=== PATIENT | female | born 1955 | race American Indian/Alaskan Native ===

== ENCOUNTER 2017-03-04 19:19 | Inpatient (IN) | payer OTHER ==
[2017-03-04 20:48] LABS: Basophils % (Auto) 0.4 % (0.0-1.8); Eosinophils % (Auto) 0.5 % (0.0-4.3); Hematocrit 37.6 % (30.3-42.9); Mean Corpuscular HGB Conc 32 % (30-34); Mean Corpuscular Hemoglobin 28 pg (28-32); Mean Corpuscular Volume 87 fl (79-97); Platelet Count 166 K/mm3 (140-440); Red Blood Count 4.35 M/mm3 (3.65-5.03); Red Cell Distribution Width 13.2 % (13.2-15.2); White Blood Count 6.6 K/mm3 (4.5-11.0)
[2017-03-04 21:04] LABS: BUN/Creatinine Ratio 26.25; Calcium 8.4 mg/dL (8.4-10.2); Chloride 98.3 mmol/L (98-107); Potassium 4.5 mmol/L (3.6-5.0)
[2017-03-04] MEDS ORDERED: NACL 0.9% 1000 ML 1,000 ML IV ONE (21:15)
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
[2017-03-04 21:20] LABS: Bacteria,Urine 1+ /HPF (Negative); Bilirubin,Urine NEG (Negative); Blood,Urine NEG (Negative); Ketones,Urine NEG (Negative); Leukocyte Esterase,Urine LG (Negative); Nitrite,Urine NEG (Negative); Urobilinogen,Urine < 2.0 mg/dL (<2.0)
--- NOTE | 2017-03-04 23:19 | Cat Scan Report ---
FINAL REPORT EXAM: CT HEAD/BRAIN WO CON HISTORY: near syncope TECHNIQUE: CT imaging is acquired through the brain without contrast. Transaxial reformations are provided. PRIORS: None. FINDINGS: Ventricles and CSF spaces are within normal limits for patient age. Scattered deep and subcortical white matter hypodense foci are confluent in some areas and are compatible with microvascular angiopathy. No acute intracranial hemorrhage or mass effect. Calvarium and superficial scalp are intact. Partially visualized paranasal sinuses are clear. Mastoids are clear. IMPRESSION: No acute intracranial abnormality. 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
[2017-03-04 23:26] LABS: INR 0.97 (0.87-1.13)
[2017-03-05] MEDS ORDERED: BABY ASPIRIN PO ONE (00:22)
[2017-03-05] MEDS ORDERED: ZOFRAN IV PRN (01:03)
[2017-03-05] MEDS ORDERED: MILK OF MAGNESIA PO PRN (01:03)
[2017-03-05] MEDS ORDERED: TYLENOL PO PRN (01:03)
[2017-03-05] MEDS ORDERED: DULCOLAX PR PRN (01:03)
[2017-03-05] MEDS ORDERED: D50W (25GM) IV PRN (01:06)
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
[2017-03-05 02:52] LABS: Creatine Kinase MB 2.6 ng/mL (0.0-4.0)
[2017-03-05 02:53] LABS: Creatine Kinase 47 units/L (30-135)
[2017-03-05] MEDS: LEVAQUIN PO SCH (04:03)
[2017-03-05] MEDS: NACL 0.45% 1000 ML 1,000 ML IV SCH ×3 (04:04→23:38)
[2017-03-05 06:41] LABS: Creatine Kinase MB 2.6 ng/mL (0.0-4.0)
[2017-03-05 06:43] LABS: Creatine Kinase 48 units/L (30-135)
[2017-03-05] MEDS: NOVOLOG SUB-Q SCH ×4 (07:43→23:37)
[2017-03-05] MEDS ORDERED: LOVENOX SUB-Q SCH (10:00)
[2017-03-05] MEDS: LOVENOX SUB-Q SCH (10:41)
--- NOTE | 2017-03-05 12:35 | Admit Criteria Form ---
Admission Criteria Documentation: SYNCOPE Clinical Indications for Admission to Inpatient Care ( Place 'X' for any and all applicable criteria): Admission is indicated for syncope and ANY ONE of the following (1)(2)(3)(4)(5) (6)(7) : [ X]I. Inpatient admission required rather than observation care (Also use Syncope: Observation Care Criteria as appropriate) because of ANY ONE of the following: [ ]a) Hemodynamic instability that is severe or persistent [ ]b) Cardiac arrhythmias of immediate concern identified or strongly suspected (eg, needs electrophysiologic study) [ ]c) Acute coronary syndrome identified (Also use Myocardial Infarction or Angina Criteria form ) [ ]d) Structural cardiac disorder (eg, aortic stenosis) suspected as cause that requires immediate correction [ ]e) Respiratory symptoms (eg, dyspnea, tachypnea) that are severe or persistent [ ]f) Neurologic signs or symptoms that are severe or persistent ( eg, stroke, seizures, altered mental status) [ ]g) Severe electrolyte abnormalities requiring inpatient care [ ]h) Supplemental oxygen or respiratory treatment for over 24 hrs that are performable only in acute inpatient setting [ ]i) IV fluid to replace significant ongoing (eg, for over 24 hrs ) losses (>3 L/m2 per day) [ ]j) Continuous intravenous infusion of anticoagulation, platelet inhibitor, vasoactive, or antiarrhythmic medication(15)(16) [ ]k) Pulmonary artery catheter monitoring [ ]l) Temporary pacemaker placement(17) [ ]m) Emergent cardioversion(18) [ X]n) Other conditions, treatment or monitoring requiring inpatient admission [ ]II. Suspicion of imminently dangerous cause (eg, rare causes like pericardial tamponade, pulmonary embolism) [ ]III. Syncope causing severe injury requiring hospitalization Extended stay beyond goal length of stay may be needed for(28) [ ]a) Dangerous arrhythmia(15)(23)(27)(29) [ ]b) Myocardial ischemia [ ]c) Seizure disorder [ ]d) Syncope-related injuries The original [employer] content created by [employer] has been revised. The portions of the content which have been revised are identified through the use of italic text or in bold, and [employer] has neither reviewed nor approved the modified material. All other unmodified content is copyright [employer] [employer] Please see references footnoted in the original [facility] edition 2016 Admission Criteria Met: Yes
--- NOTE | 2017-03-05 17:31 | Event Note ---
Date: 03/05/17 Patient was admitted this morning with syncopal episode Workup is in progress, patient feels better no new episodes of dizziness syncope or near syncope Continue current medications, fall precautions, possible discharge in 1-2 days if workup is negative
--- NOTE | 2017-03-05 18:45 | Progress Note ---
Hospitalist Physical - Constitutional Vitals: Temp Pulse Resp BP Pulse Ox 97.8 F 101 H 18 158/67 100 03/05/17 17:22 03/05/17 17:22 03/05/17 17:22 03/05/17 17:22 03/05/17 17:22 Results - Labs CBC & Chem 7: 03/04/17 20:28 03/04/17 20:28 Labs: Laboratory Last Values WBC 6.6 K/mm3 (4.5-11.0) 03/04/17 20:28 RBC 4.35 M/mm3 (3.65-5.03) 03/04/17 20:28 Hgb 12.0 gm/dl (10.1-14.3) 03/04/17 20:28 Hct 37.6 % (30.3-42.9) 03/04/17 20:28 MCV 87 fl (79-97) 03/04/17 20:28 MCH 28 pg (28-32) 03/04/17 20:28 MCHC 32 % (30-34) 03/04/17 20:28 RDW 13.2 % (13.2-15.2) 03/04/17 20:28 Plt Count 166 K/mm3 (140-440) 03/04/17 20:28 Lymph % (Auto) 20.8 % (13.4-35.0) 03/04/17 20:28 Sac % (Auto) 6.1 % (0.0-7.3) 03/04/17 20:28 Eos % (Auto) 0.5 % (0.0-4.3) 03/04/17 20:28 Baso % (Auto) 0.4 % (0.0-1.8) 03/04/17 20:28 Lymph # 1.4 K/mm3 (1.2-5.4) 03/04/17 20:28 Sac # 0.4 K/mm3 (0.0-0.8) 03/04/17 20:28 Eos # 0.0 K/mm3 (0.0-0.4) 03/04/17 20:28 Baso # 0.0 K/mm3 (0.0-0.1) 03/04/17 20:28 Seg Neutrophils % 72.2 % (40.0-70.0) H 03/04/17 20:28 Seg Neutrophils # 4.7 K/mm3 (1.8-7.7) 03/04/17 20:28 PT 13.4 Sec. (12.2-14.9) 03/04/17 22:39 INR 0.97 (0.87-1.13) 03/04/17 22:39 D-Dimer < 135.00 ng/mlDDU (0-234) 03/05/17 00:00 VBG pH 7.377 (7.320-7.420) 03/04/17 20:28 Sodium 135 mmol/L (137-145) L 03/04/17 20:28 Potassium 4.5 mmol/L (3.6-5.0) 03/04/17 20:28 Chloride 98.3 mmol/L (98-107) 03/04/17 20:28 Carbon Dioxide 25 mmol/L (22-30) 03/04/17 20:28 Anion Gap 16 mmol/L 03/04/17 20:28 BUN 42 mg/dL (7-17) H 03/04/17 20:28 Creatinine 1.6 mg/dL (0.7-1.2) H 03/04/17 20:28 Estimated GFR 39 ml/min 03/04/17 20:28 BUN/Creatinine Ratio 26.25 % 03/04/17 20:28 Glucose 435 mg/dL (65-100) H 03/04/17 20:28 POC Glucose 477 (70-105) H 03/05/17 15:42 Calcium 8.4 mg/dL (8.4-10.2) 03/04/17 20:28 Magnesium 1.90 mg/dL (1.7-2.3) 03/04/17 20:28 Total Creatine Kinase 48 units/L (30-135) 03/05/17 05:26 CK-MB (CK-2) 2.6 ng/mL (0.0-4.0) 03/05/17 05:26 CK-MB (CK-2) Rel Index 5.4 (0-4) H 03/05/17 05:26 Troponin T < 0.010 ng/mL (0.00-0.029) 03/05/17 05:26 Urine Color Yellow (Yellow) 03/04/17 Unknown Urine Turbidity Clear (Clear) 03/04/17 Unknown Urine pH 5.0 (5.0-7.0) 03/04/17 Unknown Ur Specific [place] 1.021 (1.003-1.030) 03/04/17 Unknown Urine Protein 30 mg/dl mg/dL (Negative) 03/04/17 Unknown Urine Glucose (UA) >=500 mg/dL (Negative) 03/04/17 Unknown Urine Ketones Neg mg/dL (Negative) 03/04/17 Unknown Urine Blood Neg (Negative) 03/04/17 Unknown Urine Nitrite Neg (Negative) 03/04/17 Unknown Urine Bilirubin Neg (Negative) 03/04/17 Unknown Urine Urobilinogen < 2.0 mg/dL (<2.0) 03/04/17 Unknown Ur Leukocyte Esterase Lg (Negative) 03/04/17 Unknown Urine WBC (Auto) 11.0 /HPF (0.0-6.0) H 03/04/17 Unknown Urine RBC (Auto) 11.0 /HPF (0.0-6.0) 03/04/17 Unknown U Epithel Cells (Auto) 7.0 /HPF (0-13.0) 03/04/17 Unknown Urine Bacteria (Auto) 1+ /HPF (Negative) 03/04/17 Unknown
[2017-03-06 08:21] LABS: Basophils % (Auto) 0.7 % (0.0-1.8); Eosinophils % (Auto) 1.7 % (0.0-4.3); Hematocrit 35.4 % (30.3-42.9); Hemoglobin 11.5 gm/dl (10.1-14.3); Mean Corpuscular HGB Conc 32 % (30-34); Mean Corpuscular Hemoglobin 28 pg (28-32); Mean Corpuscular Volume 86 fl (79-97); Platelet Count 160 K/mm3 (140-440); Red Blood Count 4.12 M/mm3 (3.65-5.03); Red Cell Distribution Width 13.3 % (13.2-15.2); White Blood Count 6.3 K/mm3 (4.5-11.0)
[2017-03-06 08:23] LABS: BUN/Creatinine Ratio 17.5; Calcium 8.5 mg/dL (8.4-10.2); Chloride 103.6 mmol/L (98-107); Potassium 3.8 mmol/L (3.6-5.0)
[2017-03-06] MEDS: NOVOLOG SUB-Q SCH ×2 (08:37→13:37)
[2017-03-06] MEDS: LOVENOX SUB-Q SCH (09:04)
[2017-03-06] MEDS: LEVAQUIN PO SCH (09:04)
[2017-03-06 13:11] VITALS: BP 166/76
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
--- NOTE | 2017-03-10 10:22 | Vascular Lab Report ---
CAROTID DUPLEX STUDY: RIGHT PSVEDV CCA [id number] CCA [id number] ICA [id number] ICA MID:[id number] ICA DIST:[id number] ECA: 150 VERT: 67 12 LEFT PSVEDV CCA [id number] CCA DIST:[id number] ICA PROX:[id number] ICA MID:[id number] ICA DIST:[id number] ECA: 145 VERT: 77 14 REASON FOR EXAM: Carotid artery stenosis/syncope. COMMENTS ON THE RIGHT: Doppler frequency analysis is consistent with 16 to 49 percent diameter reduction of the internal carotid artery. Minimal amount of plaque is seen. The common carotid artery is patent. The external carotid artery is patent. The vertebral artery has antegrade flow. COMMENTS ON THE LEFT: Doppler frequency analysis is consistent with 16 to 49 percent diameter reduction of the internal carotid artery. Minimal amount of plaque is seen. The common carotid artery is patent. The external carotid artery is patent. The vertebral artery has antegrade flow. IMPRESSION: Less than 50% diameter reduction in the internal carotid arteries bilaterally. Consider repeat carotid artery duplex in 12 months.
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
== END 2017-03-06 15:54 | disposition home or self-care (01) | DRG 682 ==
LOC: ED 19:19 → 4A 03-05 01:03
PROVIDERS: ADMIT Internal Medicine; ATTEND Internal Medicine
DX: N17.9 Acute kidney failure, unspecified (principal); E11.00 Type 2 diabetes mellitus with hyperosmolarity without nonketotic hyperglycemic-hyperosmolar coma (NKHHC); N39.0 Urinary tract infection, site not specified; E11.65 Type 2 diabetes mellitus with hyperglycemia; N18.9 Chronic kidney disease, unspecified; I12.9 Hypertensive chronic kidney disease with stage 1 through stage 4 chronic kidney disease, or unspecified chronic kidney disease; E11.22 Type 2 diabetes mellitus with diabetic chronic kidney disease; Z90.49 Acquired absence of other specified parts of digestive tract; Z82.49 Family history of ischemic heart disease and other diseases of the circulatory system
CPT/HCPCS: 36415; 70450; 80048; 81001; 82550; 82553; 82805; 82962; 83036; 83735; 84484; 85025; 85379; 85610; 87086; 93005; 93010; 93306; 93880; 96361; 96374; 99285; J1650; J1815; J7030

== ENCOUNTER 2020-12-17 14:22 | Emergency (ER) | payer MEDICARE, OTHER ==
--- NOTE | 2020-12-17 14:49 | Event Note ---
ED Screening Note ED Screening Note: BG OVER 500 FREQUENCY/HUNGRY WEAKNESS DIABETIC This initial assessment/diagnostic orders/clinical plan/treatment(s) is/are subject to change based on patients health status, clinical progression and re- assessment by fellow clinical providers in the ED. Further treatment and workup at subsequent clinical providers discretion. Patient/guardian urged not to elope from the ED as their condition may be serious if not clinically assessed and managed. Initial orders include: HYPERGLYCEMIA- RO DKA
[2020-12-17 15:15] LABS: Basophils % (Auto) 0.5 % (0.0-1.8); Eosinophils % (Auto) 0.2 % (0.0-4.3); Hematocrit 38.7 % (30.3-42.9); Hemoglobin 12.7 gm/dl (10.1-14.3); Lymphocytes # (Auto) 0.8 K/mm3 (1.2-5.4); Lymphocytes % (Auto) 10.1 % (13.4-35.0); Mean Corpuscular HGB Conc 33 % (30-34); Mean Corpuscular Volume 90 fl (79-97); Monocytes # (Auto) 0.3 K/mm3 (0.0-0.8); Monocytes % (Auto) 3.3 % (0.0-7.3); Platelet Count 226 K/mm3 (140-440); Red Blood Count 4.31 M/mm3 (3.65-5.03); Red Cell Distribution Width 13.5 % (13.2-15.2)
[2020-12-17 15:36] LABS: Alanine Aminotransferase 9 units/L (7-56); Albumin 4.5 g/dL (3.9-5); Blood Urea Nitrogen 52 mg/dL (7-17); Calcium 8.4 mg/dL (8.4-10.2); Hemolysis Index 2
[2020-12-17 15:39] LABS: BUN/Creatinine Ratio 11
--- NOTE | 2020-12-17 15:48 | XRay Report ---
CHEST 2 VIEWS INDICATION / CLINICAL INFORMATION: WEAKNESS. COMPARISON: Report from chest radiograph dated 07/25/2018. Images are not available for direct compar twila. FINDINGS: SUPPORT DEVICES: None. HEART / MEDIASTINUM: No significant abnormality. LUNGS / PLEURA: No significant pulmonary or pleural abnormality. No pneumothorax. There is a small ca lcified granuloma in the left midlung zone. ADDITIONAL FINDINGS: No significant additional findings. IMPRESSION: 1. No acute findings. Signer Name: Prashant Bailey MD Signed: 12/17/2020 3:44 PM Workstation Name: [id number]
[2020-12-17 20:40] LABS: Bilirubin,Urine NEG (Negative); Blood,Urine SM (Negative); Color,Urine Straw (Yellow); Urobilinogen,Urine < 2.0 mg/dL (<2.0)
[2020-12-17] MEDS ORDERED: INSULIN REGULAR, HUMAN 100 UNITS/1 ML IV ONE ×2 (20:47→22:52)
[2020-12-17] MEDS ORDERED: SODIUM CHLORIDE 0.9% 1000 ML 1,000 ML IV ONE (20:47)
--- NOTE | 2020-12-17 21:03 | Emergency Department Report ---
ED General Adult HPI - General Chief complaint: Hyperglycemia Stated complaint: ELEVATED BLOOD GLUCOSE Time Seen by Provider: 12/17/20 14:29 Source: patient Mode of arrival: Ambulatory Limitations: No Limitations - History of Present Illness Initial comments: Patient is 65 years old female with history of hypertension diabetes. Patient presented to the ER blood sugar. Patient stated that she was taking Lantus. She was stopped because they told her that her kidney is not working well. Patient also admitted that she has been drinking a lot of juices and eating past. Patient denied any chest pain, shortness of breath, abdominal pain, nausea or vomiting. No weakness numbness or tingling sensation. - Related Data Home Medications Medication Instructions Recorded Confirmed Last Taken Pravastatin Sodium [Pravastatin] 20 mg PO DAILY 03/05/17 08/06/18 07/24/18 Benzonatate 200 mg PO Q8H PRN 07/25/18 08/06/18 Unknown Insulin Glargine,Hum.rec.anlog 13 units SUB-Q QPM 07/25/18 08/06/18 07/23/18 [Lantus Solostar] Previous Rx's Medication Instructions Recorded Last Taken Type Cefuroxime Axetil [Ceftin] 500 mg PO Q12H #14 ml 07/30/18 Unknown Rx Metoprolol [Lopressor TAB] 50 mg PO BID #60 tablet 07/30/18 Unknown Rx amLODIPine 10 mg PO QDAY tablet 07/30/18 Unknown Rx Ondansetron (Nf) [Zofran TAB] 4 mg PO Q8HR PRN #30 tablet 08/08/18 Unknown Rx oxyCODONE /ACETAMINOPHEN [Percocet 1 tab PO Q4H PRN #25 tablet 08/08/18 Unknown Rx 5/325 mg] Insulin Glargine [Lantus VIAL] 13 units SUB-Q QHS #5 vial 12/17/20 Unknown Rx Allergies Allergy/AdvReac Type Severity Reaction Status Date / Time No Known Allergies Allergy Verified 12/17/20 14:47 ED Review of Systems ROS: Stated complaint: ELEVATED BLOOD GLUCOSE Other details as noted in HPI Comment: All other systems reviewed and negative Constitutional: denies: chills, fever Respiratory: denies: cough, shortness of breath, SOB with exertion Cardiovascular: denies: chest pain, palpitations Gastrointestinal: denies: abdominal pain, nausea, vomiting, diarrhea, constipation, hematemesis, melena, hematochezia Genitourinary: denies: urgency Musculoskeletal: denies: back pain Neurological: denies: headache, weakness, numbness, paresthesias, confusion, abnormal gait ED Past Medical Hx - Past Medical History Hx Hypertension: Yes (no antihypertensives today 2/2 nausea/vomiting) Hx Heart Attack/AMI: No Hx Congestive Heart Failure: No Hx Diabetes: Yes Hx Deep Vein Thrombosis: No Hx Pulmonary Embolism: No Hx GERD: Yes Hx Liver Disease: No 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) Hx Sickle Cell Disease: No Hx Seizures: No Hx Asthma: No Hx COPD: No Hx Tuberculosis: No Hx HIV: No - Surgical History Hx Coronary Stent: No Hx Open Heart Surgery: No Hx Pacemaker: No Hx Internal Defibrillator: No Hx Cholecystectomy: Yes Hx Appendectomy: No Hx Breast Surgery: No Additional Surgical History: fibroid tumors removed - Social History Smoking Status: Never Smoker Substance Use Type: None - Medications Home Medications: Home Medications Medication Instructions Recorded Confirmed Last Taken Type Pravastatin Sodium [Pravastatin] 20 mg PO DAILY 03/05/17 08/06/18 07/24/18 Histo ry Benzonatate 200 mg PO Q8H PRN 07/25/18 08/06/18 Unknown History Insulin Glargine,Hum.rec.anlog 13 units SUB-Q QPM 07/25/18 08/06/18 07/23/18 History [Lantus Solostar] Cefuroxime Axetil [Ceftin] 500 mg PO Q12H #14 ml 07/30/18 08/06/18 Unknown Rx Metoprolol [Lopressor TAB] 50 mg PO BID #60 tablet 07/30/18 08/06/18 Unknown Rx amLODIPine 10 mg PO QDAY tablet 07/30/18 08/06/18 Unknown Rx Ondansetron (Nf) [Zofran TAB] 4 mg PO Q8HR PRN #30 tablet 08/08/18 Unknown Rx oxyCODONE /ACETAMINOPHEN [Percocet 1 tab PO Q4H PRN #25 tablet 08/08/18 Unknown Rx 5/325 mg] Insulin Glargine [Lantus VIAL] 13 units SUB-Q QHS #5 vial 12/17/20 Unknown Rx ED Physical Exam - General Limitations: No Limitations General appearance: alert, in no apparent distress - Head Head exam: Present: atraumatic, normocephalic, normal inspection - Eye Eye exam: Present: normal appearance, PERRL - ENT ENT exam: Present: normal exam, normal orophraynx, mucous membranes moist - Neck Neck exam: Present: normal inspection, full ROM. Absent: tenderness, meningismus - Respiratory Respiratory exam: Present: normal lung sounds bilaterally - Cardiovascular Cardiovascular Exam: Present: regular rate, normal rhythm, normal heart sounds - GI/Abdominal GI/Abdominal exam: Present: soft, normal bowel sounds. Absent: distended, tenderness, guarding, rebound, rigid, organomegaly, mass, bruit, pulsatile mass, hernia - Extremities Exam Extremities exam: Present: normal inspection, full ROM, normal capillary refill. Absent: tenderness, pedal edema, joint swelling, calf tenderness - Back Exam Back exam: Present: normal inspection, full ROM. Absent: CVA tenderness (R), CVA tenderness (L) - Neurological Exam Neurological exam: Present: alert, oriented X3, CN II-XII intact - Psychiatric Psychiatric exam: Present: normal mood - Skin Skin exam: Present: warm, intact, normal color ED Course Vital Signs 12/17/20 12/17/20 12/17/20 20:15 21:01 22:01 Pulse Rate 71 77 64 Respiratory 11 L 14 16 Rate Blood Pressure 190/93 179/89 164/82 O2 Sat by Pulse 99 98 97 Oximetry 12/17/20 12/17/20 12/18/20 22:53 23:00 00:01 Pulse Rate 73 73 69 Respiratory 13 13 15 Rate Blood Pressure 164/82 169/97 147/81 O2 Sat by Pulse 99 100 97 Oximetry ED Medical Decision Making - Lab Data Result diagrams: 12/17/20 14:57 12/17/20 14:57 - Medical Decision Making Patient is 65 years old female with history of hypertension diabetes. Patient presented to the ER blood sugar. Patient stated that she was taking Lantus. She was stopped because they told her that her kidney is not working well. Patient also admitted that she has been drinking a lot of juices and eating p ast. Patient denied any chest pain, shortness of breath, abdominal pain, nausea or vomiting. No weakness numbness or tingling sensation. Patient remained stable in the ER with stable vital sign. Labs reviewed and showed significantly elevated blood glucose. Patient received normal saline and insulin. Patient current blood sugar is 150. Patient given prescription for Lantus and advised to follow-up with her primary doctor in the next 2 to 3 days and to return to the ER if she develop any new symptoms. Critical care attestation.: If time is entered above; I have spent that time in minutes in the direct care of this critically ill patient, excluding procedure time. ED Disposition Clinical Impression: Acute hyperglycemia Disposition: DC- TO HOME OR SELFCARE Is pt being admited?: No Condition: Stable Instructions: Hyperglycemia, Nibh-oh-Ieot Prescriptions: Insulin Glargine [Lantus VIAL] 13 units SUB-Q QHS #5 vial Referrals: PRIMARY CARE, [Primary Care Provider] - 3-5 Days
[2020-12-18 00:16] VITALS: BP 147/81
== END 2020-12-18 00:47 | disposition home or self-care (01) ==
LOC: ED 14:22
DX: E11.65 Type 2 diabetes mellitus with hyperglycemia (principal); I10 Essential (primary) hypertension; K21.9 Gastro-esophageal reflux disease without esophagitis; Z90.49 Acquired absence of other specified parts of digestive tract; Z79.899 Other long term (current) drug therapy; Z98.890 Other specified postprocedural states
CPT/HCPCS: 36415; 71046; 80053; 81001; 82010; 82805; 82962; 84484; 85025; 96361; 96374; 96376; 99284; J7030; J1815